=== PATIENT | male | born 1965 | race African-American/Black ===

== ENCOUNTER 2016-08-06 05:40 | Inpatient (IN) ==
--- NOTE | 2016-08-05 14:35 | EKG Report ---
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
[2016-08-05 15:29] LABS: Basophils % 0.4 % (0.0-0.8); Eosinophils # 0.1 10*3/uL (0.0-0.87); Eosinophils % 1.3 % (0.00-10.9); Hematocrit 35.2 VOL% (42.0-52.0); Hemoglobin 11.7 GM/DL (14.0-18.0); Immature Granulocytes % 0.3 %; Immature Granulocytes Absolute 0.03 #; Lymphocytes # 2.2 10*3/uL (1.4-4.0); Mean Corpuscular HGB Conc 33.2 GM/DL (32-36); Mean Corpuscular Hemoglobin 28 PG (27-34); Mean Corpuscular Volume 82.6 FL (87-102); Mean Platelet Volume 8.8 FL (9.6-12.0); Monocytes # 0.5 10*3/uL (0.11-0.8); Monocytes % 5.2 % (1.7-12.7); Neutrophils # 7.1 10*3/uL (1.4-7.4); Neutrophils % 70.8 % (38.7-73.9); Platelet Count 537 T/CUMM (130-400); Red Blood Count 4.26 MC/CUMM (3.8-5.5)
[2016-08-05 15:39] LABS: PT Patient Result 10.7 SECS; Partial Thromboplastin Time 27.7 SECS (0-40)
[2016-08-05 16:12] LABS: Apearance,Urine CLEAR (Clear); Bacteria,Urine Occasional /HPF (Few); Bilirubin,Urine Negative (Negative); Blood, Urine Negative (Negative); Glucose,Urine (UA) Negative (Negative); Ketones,Urine Negative (Negative); Mucus,Urine Many /LPF (Occasional); Nitrite,Urine Negative (Negative); Protein,Urine Negative; RBC,Urine 2 /HPF (0-4); Squamous Epithelial Cell,Urine Occasional /HPF (0-10); Urine Color Yellow (Yellow); Urine Specific Gravity 1.021 (1.001-1.035); WBC,Urine 1 /HPF (0-6)
--- NOTE | 2016-08-05 16:12 | XRay Report ---
XR chest 2V Indication: Preop respiratory evaluation. Chest 2 views: Comparison 08/22/2015. The heart size and mediastinal contour are normal. The lungs and pleural spaces are clear. Bones are unremarkable. Impression: Negative chest. PROCEDURE INTERPRETED AT [facility] DEPARTMENT OF RADIOLOGY Final Report Signed by: Brian Simeon M.D.
[2016-08-06] MEDS ORDERED: VANCOMYCIN INJ 1,000 MG in SODIUM CHLORIDE 0.9% 250 ML IV ONE (06:00)
--- NOTE | 2016-08-06 06:45 | History and Physical Update ---
History and Physical Update - History and Physical H&P was reviewed, the patient examined and there: are no changes in the patients condition since last H&P was completed. - Physical Exam Mental Status: alert and oriented Heart: regular rate and rhythm Lung: clear to auscultation
[2016-08-06] MEDS: LACTATED RINGERS 1,000 ML IV SCH ×4 (07:19→22:08)
[2016-08-06 07:24] LABS: Albumin 3.1 G/DL (3.4-5.0); Bilirubin,Total 0.4 MG/DL (0.2-1.0); Calcium 8.5 MG/DL (8.5-10.1); Osmolality,Calculated 277.5 MOS/KG (273-304); Potassium 3.8 MMOL/L (3.5-5.1); Total Protein 8.1 G/DL (6.4-8.3)
[2016-08-06] MEDS ORDERED: VANCOMYCIN 1,000 MG VIAL ONE (07:29)
[2016-08-06] MEDS ORDERED: SODIUM CHLORIDE 0.9% 100 ML IV ONE ×2 (07:30→10:35)
[2016-08-06] MEDS ORDERED: ceFAZolin 1,000 MG VIAL ONE (07:30)
[2016-08-06] MEDS ORDERED: BACITRACIN OINT 0.9 GM PACK TOP ONE (10:02)
[2016-08-06] MEDS ORDERED: MORPHINE 2 MG/1 ML SYRINGE IV PRN ×2 (10:15)
[2016-08-06] MEDS ORDERED: ONDANSETRON 4 MG/2 ML VIAL IV PRN (10:15)
[2016-08-06] MEDS ORDERED: oxyCODONE IR 5 MG TABLET PO PRN ×2 (10:15)
[2016-08-06] MEDS ORDERED: ZALEPLON 5 MG CAPSULE PO PRN (10:15)
[2016-08-06] MEDS ORDERED: MAGNESIUM HYDROXIDE SUSP 30 ML UDCUP PO PRN (10:15)
[2016-08-06] MEDS ORDERED: diphenhydrAMINE CAP 25 MG CAPSULE PO PRN (10:15)
--- NOTE | 2016-08-06 10:20 | Operative Note ---
Date of procedure: 08/06/16 Procedure: DIAGNOSIS: Left hip primary osteoarthritis PROCEDURE: Left total hip arthroplasty (CPT#52272) SURGEON: Margaux ASST: Hansa ANESTHESIA: Spinal PROCEDURE and FINDINGS: After adequate anesthesia was induced, the patient was placed in lateral decubitus position. Left lower extremities prepped and draped in usual sterile fashion. Posteriolateral approach to the hip was made. Skin, subcutaneous tissue and deep fascia was incised longitudinally. Gluteus danny muscle belly was split in line with its fibers. Piriformis, external rotators and capsule were taken down as a single layer as an inverted L shaped capsulotomy. Hip was dislocated. Templated femoral neck cut was made. Acetabulum was prepared by sequentially reaming to 53 mm. A 54 mm Continuum acetabular shell was press-fit with excellent stability. 1 6.5 millimeter screw was placed with an excellent bite. 32 mm neutral Longevity liner was placed with a dome hole plug. Femur was prepared sequentially with the box osteotome, canal finder and sequential broaches to 15. Components were trialed. A size 15 Versys fiber metal tapered stem was press-fit. A 32+0 mm head was placed. The component was stable posteriorly and anteriorly. Capsule was repaired with #5 Tycron. Deep fascia was closed with 0 Vicryl figure-of- eight suture. Subcutaneous tissue was closed deep with a 2-0 Vicryl runner and superficially with 3-0 interrupted buried sutures. Skin was closed with thien. Bacitracin and a sterile occlusive dressing was applied. Surgeon / Physician: Bradley Damico Jr. Results - Labs CBC & BMP: 08/05/16 15:23 08/06/16 06:40 Discharge Plan - Discharge Medications No Action Naproxen Sodium [Aleve] 220 mg PO DIRECTED - Follow Up or Referral - Forms/Instructions
--- NOTE | 2016-08-06 10:29 | Anesthesia Post-Op ---
Anesthesia Post OP - Post Ansesthetic Evaluation Patient seen in post op: Yes Resp: within normal limits CV: within normal limits Mental: within normal limits Temp: within normal limits Leeq-If-Btuyoqaxv: within normal limits Nausea and Vomiting: within normal limits Pain: within normal limits
[2016-08-06 10:35] LABS: Apearance,Urine CLEAR (Clear); Bilirubin,Urine Negative (Negative); Blood, Urine Small mg/dL (Negative); Glucose,Urine (UA) Negative (Negative); Ketones,Urine Negative (Negative); Mucus,Urine Occasional /LPF (Occasional); Nitrite,Urine Negative (Negative); Protein,Urine Negative; RBC,Urine 2 /HPF (0-4); Squamous Epithelial Cell,Urine Occasional /HPF (0-10); Urine Color Colorless (Yellow); Urine Specific Gravity 1.006 (1.001-1.035); Urine Urobilinogen < 2.0 EU/DL (0.2-1.0); WBC,Urine 2 /HPF (0-6)
[2016-08-06] MEDS ORDERED: MORPHINE 10 MG/10 ML VIAL ONE (10:35)
[2016-08-06] MEDS ORDERED: ACETAMINOPHEN 1,000 MG/100 ML VIAL IV ONE (10:35)
[2016-08-06] MEDS ORDERED: fentaNYL 100 MCG/2 ML VIAL ONE (10:35)
[2016-08-06] MEDS ORDERED: MIDAZOLAM 2 MG/2 ML VIAL ONE (10:35)
[2016-08-06] MEDS ORDERED: TRANEXAMIC ACID 1,000 MG/10 ML VIAL IV ONE (10:36)
--- NOTE | 2016-08-06 10:54 | XRay Report ---
XR hip 1V LT Indication: Hip arthroplasty Comparison: None available Findings: Left hip arthroplasty has been performed. Component positioning and alignment appear within normal limits. No periprosthetic fracture is identified. Impression: Expected postoperative appearance of the left hip. PROCEDURE INTERPRETED AT [facility] DEPARTMENT OF RADIOLOGY Final Report Signed by: Dr. uDncan Camejo
[2016-08-06] MEDS: KETOROLAC 30 MG/1 ML VIAL IV SCH ×2 (12:38→17:10)
--- NOTE | 2016-08-06 15:38 | Orthopedic Progress Note ---
Orthopedics - Subjective Interval history: Comfortable postop. Dressing clean, dry and intact. Left lower extremities neurovascularly intact. Plan: Continue with current postoperative protocol. Exam - Constitutional Vitals: Period Temp Pulse Resp BP Sys/Paige Pulse Ox Last 24 Hr 97 F-97.7 F 50-65 14-20 93-125/54-80 98-100 Results - Labs CBC & BMP: 08/05/16 15:23 08/06/16 06:40
[2016-08-06] MEDS: ACETAMINOPHEN 500 MG TABLET PO SCH ×2 (17:10→22:04)
[2016-08-06] MEDS: DOCUSATE SODIUM 100 MG CAPSULE PO SCH (22:04)
[2016-08-07] MEDS: KETOROLAC 30 MG/1 ML VIAL IV SCH ×2 (00:24→05:42)
[2016-08-07 03:51] LABS: Basophils % 0.3 % (0.0-0.8); Eosinophils # 0.1 10*3/uL (0.0-0.87); Hematocrit 26.6 VOL% (42.0-52.0); Hemoglobin 8.7 GM/DL (14.0-18.0); Immature Granulocytes % 0.3 %; Immature Granulocytes Absolute 0.02 #; Lymphocytes # 1.8 10*3/uL (1.4-4.0); Lymphocytes % 22.6 % (21.2-54.2); Mean Corpuscular HGB Conc 32.7 GM/DL (32-36); Mean Corpuscular Hemoglobin 28 PG (27-34); Mean Corpuscular Volume 84.2 FL (87-102); Mean Platelet Volume 9.7 FL (9.6-12.0); Monocytes # 0.5 10*3/uL (0.11-0.8); Monocytes % 6.3 % (1.7-12.7); Neutrophils # 5.4 10*3/uL (1.4-7.4); Neutrophils % 69.5 % (38.7-73.9); Platelet Count 393 T/CUMM (130-400); Red Blood Count 3.16 MC/CUMM (3.8-5.5); White Blood Count 7.7 T/CUMM (4-12)
[2016-08-07 04:12] LABS: Calcium 7.7 MG/DL (8.5-10.1); Osmolality,Calculated 276.4 MOS/KG (273-304); Potassium 4.3 MMOL/L (3.5-5.1)
[2016-08-07] MEDS: ACETAMINOPHEN 500 MG TABLET PO SCH ×2 (04:38→10:58)
[2016-08-07] MEDS: FONDAPARINUX 2.5 MG/0.5 ML SYRINGE SUBCUT SCH (04:38)
[2016-08-07] MEDS: LACTATED RINGERS 1,000 ML IV SCH (05:43)
--- NOTE | 2016-08-07 07:29 | Orthopedic Progress Note ---
Orthopedics - Subjective Interval history: Mr. Rodney is doing well this morning. He was able to sit up yesterday afternoon with physical therapy. Dressing clean, dry and intact. Left lower extremities neurovascularly unchanged. Plan: Mobilize with physical therapy. Plan swing bed placement. Exam - Constitutional Vitals: Period Temp Pulse Resp BP Sys/[place] Pulse Ox Last 24 Hr 97 F-98.4 F 50-81 14-16 93-144/44-80 97-100 Results - Labs CBC & BMP: 08/07/16 02:58 08/07/16 02:58
[2016-08-07] MEDS: DOCUSATE SODIUM 100 MG CAPSULE PO SCH ×2 (09:27→20:00)
[2016-08-07] MEDS: CELECOXIB 200 MG CAPSULE PO SCH (12:56)
[2016-08-08 02:20] LABS: Basophils % 0.3 % (0.0-0.8); Eosinophils # 0.2 10*3/uL (0.0-0.87); Hematocrit 27.8 VOL% (42.0-52.0); Immature Granulocytes % 0.3 %; Immature Granulocytes Absolute 0.03 #; Lymphocytes # 1.6 10*3/uL (1.4-4.0); Lymphocytes % 17.8 % (21.2-54.2); Mean Corpuscular HGB Conc 32.4 GM/DL (32-36); Mean Corpuscular Hemoglobin 27 PG (27-34); Mean Platelet Volume 9.3 FL (9.6-12.0); Monocytes # 0.4 10*3/uL (0.11-0.8); Monocytes % 4.9 % (1.7-12.7); Neutrophils # 6.7 10*3/uL (1.4-7.4); Neutrophils % 74.7 % (38.7-73.9); Platelet Count 424 T/CUMM (130-400); Red Blood Count 3.35 MC/CUMM (3.8-5.5); Red Cell Distribution Width 14.8 % (9.3-17.3)
[2016-08-08] MEDS: FONDAPARINUX 2.5 MG/0.5 ML SYRINGE SUBCUT SCH (05:43)
--- NOTE | 2016-08-08 07:41 | Orthopedic Progress Note ---
Orthopedics - Subjective Interval history: Comfortable. Patient was able to ambulate in the room yesterday. Dressing clean, dry and intact. Right lower extremities neurovascularly unchanged. Plan: Continue physical therapy. Plan swing bed placement. Exam - Constitutional Vitals: Period Temp Pulse Resp BP Sys/Paige Pulse Ox Last 24 Hr 97.6 F-98.9 F 56-77 18-20 100-137/57-73 95-100 Results - Labs CBC & BMP: 08/08/16 01:56 08/07/16 02:58
[2016-08-08] MEDS: CELECOXIB 200 MG CAPSULE PO SCH (08:43)
[2016-08-08] MEDS: DOCUSATE SODIUM 100 MG CAPSULE PO SCH ×2 (08:44→20:48)
[2016-08-09] MEDS: FONDAPARINUX 2.5 MG/0.5 ML SYRINGE SUBCUT SCH (04:10)
[2016-08-09 05:51] LABS: Basophils % 0.3 % (0.0-0.8); Eosinophils # 0.2 10*3/uL (0.0-0.87); Eosinophils % 2.2 % (0.00-10.9); Hematocrit 29.5 VOL% (42.0-52.0); Hemoglobin 9.7 GM/DL (14.0-18.0); Immature Granulocytes % 0.3 %; Immature Granulocytes Absolute 0.03 #; Lymphocytes # 1.9 10*3/uL (1.4-4.0); Lymphocytes % 19.9 % (21.2-54.2); Mean Corpuscular HGB Conc 32.9 GM/DL (32-36); Mean Corpuscular Hemoglobin 27 PG (27-34); Mean Corpuscular Volume 82.2 FL (87-102); Mean Platelet Volume 9.3 FL (9.6-12.0); Monocytes # 0.6 10*3/uL (0.11-0.8); Monocytes % 6.4 % (1.7-12.7); Neutrophils # 6.9 10*3/uL (1.4-7.4); Neutrophils % 70.9 % (38.7-73.9); Platelet Count 478 T/CUMM (130-400); Red Blood Count 3.59 MC/CUMM (3.8-5.5); Red Cell Distribution Width 14.8 % (9.3-17.3); White Blood Count 9.7 T/CUMM (4-12)
[2016-08-09] MEDS: DOCUSATE SODIUM 100 MG CAPSULE PO SCH ×2 (09:07→21:01)
[2016-08-09] MEDS: CELECOXIB 200 MG CAPSULE PO SCH (09:07)
--- NOTE | 2016-08-09 09:11 | Orthopedic Progress Note ---
Orthopedics - Subjective Interval history: Mr. Rodney was able to walk in the [place] yesterday a short distance. Mr. Rodney has elected to go home. Dressing is clean, dry and intact. Left lower extremities neurovascularly unchanged. Plan: Continue physical therapy. Plan discharge home tomorrow with outpatient physical therapy. Exam - Constitutional Vitals: Period Temp Pulse Resp BP Sys/Paige Pulse Ox Last 24 Hr 97.2 F-99.1 F 72-78 16-18 121-133/72-88 94-99 Results - Labs CBC & BMP: 08/09/16 05:36 08/07/16 02:58
--- NOTE | 2016-08-09 09:30 | Discharge Summary ---
Hospital Course - Hospital Course Hospital Course: Phil Rodney was admitted after undergoing an uncomplicated left total hip arthroplasty. He received perioperative DVT and antimicrobial prophylaxis. Received physical therapy. He was discharged home in stable condition. His dressing is clean, dry and intact. Left lower extremity is neurovascularly unchanged. Discharge instructions were reviewed. Specialty Discharge - Follow Up or Referrals Follow up with: Bradley Damico Jr., MD [Physician] - 08/19/16 8:30 am Discharge Plan - Discharge Data Disposition: Disch To Home/Self Care Condition at Discharge: Stable Discharge Diet: advance to your usual diet Hygiene: may shower Weight Bearing at Discharge: weight bear as tolerated Driving: not until seen by doctor - Discharge Medications No Action No Known Home Medications [No Known Home Medications] - Follow Up or Referral Follow Up: Bradley Damico Jr., MD [Physician] - 08/19/16 8:30 am - Forms/Instructions Additional Discharge Instructions: Posterior hip precautions for 3 months. Daily dry dressing changes. Arrange for walker and bedside commode for home use. Wear BENJI hose for 1 month. Follow-up appointment in 10 days. Prescription for [place] 7.5 with 30 tablets was written. Take aspirin 325 mg by mouth daily for 21 days. Set up outpatient physical therapy. Exam - Constitutional Vitals: Period Temp Pulse Resp BP Sys/Paige Pulse Ox Last 24 Hr 97.2 F-99.1 F 72-78 16-18 121-133/72-88 94-99 Discharge Results Labs on day of discharge: Labs from last 24 hours 08/09/16 05:36 WBC 9.7 RBC 3.59 L Hgb 9.7 L Hct 29.5 L MCV 82.2 L MCH 27 MCHC 32.9 RDW 14.8 Plt Count 478 H MPV 9.3 L Neut % (Auto) 70.9 Lymph % (Auto) 19.9 L [place] % (Auto) 6.4 Eos % (Auto) 2.2 Baso % (Auto) 0.3 Neut # (Auto) 6.9 Lymph # (Auto) 1.9 [place] # (Auto) 0.6 Eos # (Auto) 0.2 Baso # (Auto) 0.0 Immature Gran % 0.3 Nucleated RBC % 0.0 Immature Gran # 0.03 Nucleated RBCs # 0.00 DS: Provider Date of admission: 08/06/16 05:40 Primary care physician: Yevgeniy Chase MD Attending physician on admission: Bradley Damico Jr., Consults: 08/06/16 10:15 Consult to Case Mgmt/Social Srvs [CONS] Routine Reason for Case Mgmt/Social Srvs: Rehab Home Health Equipment Consult Comment: Bedside Commode, CPM, Walker Consult to Occupational Therapy [CONS] Routine Reason for Occupational Therapy: Evaluate and Treat Consult Comment: ADL's Consult to Physical Therapy [CONS] Routine Reason for Physical Therapy: Evaluate and Treat Gait Training Start Therapy: Today Consult Comment: wbat, hip precautions 08/06/16 11:52 Consult to Pastoral Services [CONS] Routine Comment: Pastoral Screen: Request Coating Mixer Visit Pastoral Screen Source of Request: Patient 08/09/16 09:25 Consult to Outpatient Therapy [CONS] Routine Reason for Outpatient Therapy: Physical Therapy Consult Comment: s/p l erick, wbat, hip precautions Discharging clinician: Bradley Damico Jr., Expected date of discharge: 08/10/16
--- NOTE | 2016-08-09 12:24 | Pathology Report from [facility] ---
[facility] [place] : [id number] PATIENT NAME : Nataliia Hooper ORDERING DR : TRESA EDGE MD CLINICAL HX: LT hip osteoarthritis POST-OP DX: Same SPECIMEN INFO: LT hip bone & tissue GROSS DESCRIPTION: The specimen is received in formalin labeled with the patients name and consists of a 4.9 x 5.2 cm x up to 5.8 cm femoral head. The articular surface is pink-puga and degenerative with a peripheral osteophyte formations present. The cut surface is smooth and hyperemic with mild softening appreciated. Also received in the specimen are fragments of femoral neck, adipose tissue and shavings of bone collectively measuring 6.5 x 5.5 cm. Bagman/Woman tissue submitted in one cassette following decalcification. DIAGNOSIS FOR NATALIIA HOOPER: LEFT HIP BONE & TISSUE, REPLACEMENT: Osteoarthritis. COLLECTED DATE: 08/06/2016 [facility] REPORT DATE: 08/09/2016 ELECTRONICALLY SIGNED BY: Yany Ortiz M.D. 08/09/2016 - 10:28:02 JEROMY
[2016-08-10] MEDS: FONDAPARINUX 2.5 MG/0.5 ML SYRINGE SUBCUT SCH (04:01)
[2016-08-10 07:24] LABS: Calcium 8.8 MG/DL (8.5-10.1); Osmolality,Calculated 277.4 MOS/KG (273-304); Potassium 3.9 MMOL/L (3.5-5.1)
[2016-08-10] MEDS: CELECOXIB 200 MG CAPSULE PO SCH (09:00)
[2016-08-10] MEDS: DOCUSATE SODIUM 100 MG CAPSULE PO SCH (09:00)
[2016-08-10 11:49] VITALS: BP 154/95
== END 2016-08-10 12:55 | disposition home or self-care (01) | DRG 301 ==
LOC: N.SDSINP 05:40 → N.3E 11:27
PROVIDERS: ADMIT Orthopaedic Surgery; ATTEND Orthopaedic Surgery

== ENCOUNTER 2016-11-08 06:04 | Inpatient (IN) ==
[2016-11-05 10:24] LABS: Basophils % 0.6 % (0.0-0.8); Eosinophils # 0.1 10*3/uL (0.0-0.87); Hematocrit 35.1 VOL% (42.0-52.0); Hemoglobin 11.6 GM/DL (14.0-18.0); Immature Granulocytes % 0.1 %; Immature Granulocytes Absolute 0.01 #; Lymphocytes # 2.2 10*3/uL (1.4-4.0); Lymphocytes % 32.4 % (21.2-54.2); Mean Corpuscular Hemoglobin 27 PG (27-34); Mean Corpuscular Volume 81.6 FL (87-102); Mean Platelet Volume 9.3 FL (9.6-12.0); Monocytes # 0.3 10*3/uL (0.11-0.8); Monocytes % 4.8 % (1.7-12.7); Neutrophils # 4.2 10*3/uL (1.4-7.4); Neutrophils % 61.1 % (38.7-73.9); Platelet Count 487 T/CUMM (130-400); Red Cell Distribution Width 15.6 % (9.3-17.3); White Blood Count 6.9 T/CUMM (4-12)
--- NOTE | 2016-11-05 10:32 | XRay Report ---
XR chest 2V Indication: Respiratory preoperative evaluation Comparison: 05 August 2016 Findings: The heart and mediastinum are normal in size and configuration. The pulmonary vascularity is normal in caliber. No lung infiltrates, effusions, pneumothorax or other abnormality is demonstrated. Impression: Normal chest x-ray PROCEDURE INTERPRETED AT [facility] DEPARTMENT OF RADIOLOGY Final Report Signed by: Dr. Duncan Camejo
--- NOTE | 2016-11-05 10:34 | EKG Report ---
Stationary ECG Study [facility] Test Date: 11/05/2016 10:35:49 AM Pat Name: ALANIS HOOPER Department: Room: Gender: M Medical Physiologist: MARCIANO : 1965 Requested by: Bradley Polo Order Number: [id number] Reading MD: URSULA TEJADA Intervals [place] Rate: 68 P: 61 IA: 154 QRS: 66 QRSD: 97 T: -4 QT: 364 QTc: 381 Interpretive Statements SINUS RHYTHM AT 68 BPM MINIMAL VOLTAGE CRITERIA FOR LVH, CONSIDER NORMAL VARIANT SUGGESTS OLD INFERIOR MYOCARDIAL INFARCTION, Electronically Signed On 11-05-16 14:13:29 CDT by URSULA TEJADA [id number]
[2016-11-05 10:36] LABS: Apearance,Urine CLEAR (Clear); Bilirubin,Urine Negative (Negative); Blood, Urine Negative (Negative); Glucose,Urine (UA) Negative (Negative); Hyaline Casts,Urine 1 /LPF (0-3); Ketones,Urine Negative (Negative); Mucus,Urine Few /LPF (Occasional); Nitrite,Urine Negative (Negative); Protein,Urine Negative; RBC,Urine 1 /HPF (0-4); Squamous Epithelial Cell,Urine Occasional /HPF (0-10); Urine Color Yellow (Yellow); Urine Specific Gravity 1.023 (1.001-1.035); Urine Urobilinogen < 2.0 EU/DL (0.2-1.0); WBC,Urine 1 /HPF (0-6)
[2016-11-05 10:40] LABS: PT Patient Result 10.6 SECS; Partial Thromboplastin Time 27.6 SECS (0-40)
[2016-11-05 10:52] LABS: Albumin 3.4 G/DL (3.4-5.0); Bilirubin,Total 0.5 MG/DL (0.2-1.0); Calcium 8.9 MG/DL (8.5-10.1); Osmolality,Calculated 280.5 MOS/KG (273-304); Potassium 3.3 MMOL/L (3.5-5.1); Total Protein 8.8 G/DL (6.4-8.3)
[~2016-11-08 06:04] MED LIST: VANCOMYCIN INJ 1,000 MG in SODIUM CHLORIDE 0.9% 250 ML IV ONE
[2016-11-08] MEDS ORDERED: PANTOPRAZOLE 40 MG TABLET PO ONE ×2 (06:42→08:08)
[2016-11-08] MEDS ORDERED: DIAZEPAM 5 MG TABLET PO ONE (06:42)
--- NOTE | 2016-11-08 06:48 | History and Physical Update ---
History and Physical Update - History and Physical H&P was reviewed, the patient examined and there: are no changes in the patients condition since last H&P was completed.
[2016-11-08] MEDS ORDERED: VANCOMYCIN 1,000 MG VIAL ONE (06:56)
[2016-11-08] MEDS ORDERED: ceFAZolin 1,000 MG VIAL ONE (06:56)
[2016-11-08] MEDS ORDERED: SODIUM CHLORIDE 0.9% 50 ML IV ONE (06:56)
[2016-11-08] MEDS: LACTATED RINGERS 1,000 ML IV SCH ×4 (07:50→18:04)
[2016-11-08] MEDS ORDERED: DIAZEPAM 5 MG TABLET ONE (08:08)
[2016-11-08] MEDS ORDERED: TRANEXAMIC ACID 1,000 MG/10 ML VIAL IV ONE (09:28)
[2016-11-08] MEDS ORDERED: BACITRACIN OINT 0.9 GM PACK TOP ONE (10:14)
--- NOTE | 2016-11-08 10:37 | Operative Note ---
Date of procedure: 11/08/16 Procedure: DIAGNOSIS: Right hip primary osteoarthritis PROCEDURE: Right total hip arthroplasty (CPT#54303) SURGEON: Margaux ANESTHESIA: Spinal PROCEDURE and FINDINGS: After adequate anesthesia was induced, the patient was placed in lateral decubitus position. Left lower extremities prepped and draped in usual sterile fashion. Posteriolateral approach to the hip was made. Skin, subcutaneous tissue and deep fascia was incised longitudinally. Gluteus danny muscle belly was split in line with its fibers. Piriformis, external rotators and capsule were taken down as a single layer as an inverted L shaped capsulotomy. Hip was dislocated. Templated femoral neck cut was made. Acetabulum was prepared by sequentially reaming to 53 mm. A 54 mm Continuum acetabular shell was press-fit with excellent stability. 1 6.5 millimeter screw was placed with an excellent bite. 32 mm elevated rim longevity liner was placed with a dome hole plug. Femur was prepared sequentially with the box osteotome, canal finder and sequential broaches to 14. Components were trialed. A size 14 Versys fiber metal tapered stem was press-fit. A 32+0 mm head was placed. The component was stable posteriorly and anteriorly. Capsule was repaired with #5 Tycron. Deep fascia was closed with 0 Vicryl [id number]-av-pjstu suture. Subcutaneous tissue was closed deep with a 2-0 Vicryl runner and superficially with 3-0 interrupted buried sutures. Skin was closed with thien. Bacitracin and a sterile occlusive dressing was applied. Surgeon / Physician: Bradley Damico Jr. Results - Labs CBC & BMP: 11/05/16 10:14 11/05/16 10:14 Discharge Plan - Discharge Medications No Action Aspirin 325 mg PO DAILY - Follow Up or Referral - Forms/Instructions
[2016-11-08] MEDS ORDERED: diphenhydrAMINE CAP 25 MG CAPSULE PO PRN (10:38)
[2016-11-08] MEDS ORDERED: MORPHINE 2 MG/1 ML SYRINGE IV PRN (10:38)
[2016-11-08] MEDS ORDERED: ZALEPLON 5 MG CAPSULE PO PRN (10:38)
[2016-11-08] MEDS ORDERED: ONDANSETRON 4 MG/2 ML VIAL IV PRN (10:38)
[2016-11-08] MEDS ORDERED: oxyCODONE IR 5 MG TABLET PO PRN (10:38)
--- NOTE | 2016-11-08 10:53 | Anesthesia Post-Op ---
Anesthesia Post OP - Post Ansesthetic Evaluation Patient seen in post op: Yes Resp: within normal limits CV: within normal limits Mental: within normal limits Temp: within normal limits Ythp-Hg-Izibuqvez: within normal limits Nausea and Vomiting: within normal limits Pain: within normal limits
[2016-11-08 10:58] LABS: Apearance,Urine CLEAR (Clear); Bilirubin,Urine Negative (Negative); Blood, Urine Negative (Negative); Glucose,Urine (UA) Negative (Negative); Ketones,Urine Negative (Negative); Mucus,Urine Occasional /LPF (Occasional); Nitrite,Urine Negative (Negative); Protein,Urine Negative; RBC,Urine 1 /HPF (0-4); Squamous Epithelial Cell,Urine Occasional /HPF (0-10); Urine Color Straw (Yellow); Urine Specific Gravity 1.013 (1.001-1.035); Urine Urobilinogen < 2.0 EU/DL (0.2-1.0)
[2016-11-08] MEDS ORDERED: PROPOFOL 200 MG/20 ML VIAL IV ONE (11:00)
[2016-11-08] MEDS ORDERED: ONDANSETRON 4 MG/2 ML VIAL ONE (11:01)
[2016-11-08] MEDS ORDERED: KETOROLAC 30 MG/1 ML VIAL ONE (11:01)
[2016-11-08] MEDS ORDERED: fentaNYL 100 MCG/2 ML VIAL ONE (11:01)
[2016-11-08] MEDS ORDERED: MIDAZOLAM 2 MG/2 ML VIAL ONE (11:01)
[2016-11-08] MEDS ORDERED: ePHEDrine 50 MG/ML AMP ONE (11:01)
[2016-11-08] MEDS ORDERED: SODIUM CHLORIDE 0.9% 100 ML IV ONE (11:02)
[2016-11-08] MEDS ORDERED: LACTATED RINGERS 1,000 ML IV ONE (11:02)
[2016-11-08] MEDS ORDERED: ACETAMINOPHEN 1,000 MG/100 ML VIAL IV ONE (11:02)
[2016-11-08] MEDS ORDERED: GLYCOPYRROLATE 0.4 MG/2 ML VIAL ONE (11:02)
[2016-11-08] MEDS: KETOROLAC 30 MG/1 ML VIAL IV SCH ×3 (11:51→22:04)
--- NOTE | 2016-11-08 16:36 | Orthopedic Progress Note ---
Orthopedics - Subjective Interval history: Complaining of pain. Sitting in chair. Nv ok. dressing dry. Morphine now. Continue per orders. Exam - Constitutional Vitals: Period Temp Pulse Resp BP Sys/Paige Pulse Ox Last 24 Hr 97.0 F-97.7 F 50-82 16-20 90-126/69-83 98-100 Results - Labs CBC & BMP: 11/05/16 10:14 11/05/16 10:14
--- NOTE | 2016-11-08 16:55 | XRay Report ---
Exam: XR hip 1V RT Exam date 11/08/2016 10: 56 AM Indication: Postop Comparison: May 31, 2016 Findings: Patient is status post right hip arthroplasty. Alignment is anatomic. No evidence of hardware failure. Postoperative changes within the adjacent soft tissues. Impression: Expected postoperative appearance of right hip arthroplasty placement PROCEDURE INTERPRETED AT [facility] DEPARTMENT OF RADIOLOGY Final Report Signed by: Ethan Toro
[2016-11-08] MEDS: MORPHINE 2 MG/1 ML SYRINGE IV PRN (18:10)
[2016-11-08] MEDS ORDERED: VANCOMYCIN INJ 1,000 MG in SODIUM CHLORIDE 0.9% 250 ML IV ONE (18:38)
[2016-11-08] MEDS: DOCUSATE SODIUM 100 MG CAPSULE PO SCH (20:20)
[2016-11-08] MEDS: oxyCODONE IR 5 MG TABLET PO PRN (20:20)
[2016-11-09] MEDS: LACTATED RINGERS 1,000 ML IV SCH (05:04)
[2016-11-09] MEDS: FONDAPARINUX 2.5 MG/0.5 ML SYRINGE SUBCUT SCH (05:57)
[2016-11-09] MEDS: KETOROLAC 30 MG/1 ML VIAL IV SCH (05:58)
[2016-11-09 06:40] LABS: Basophils % 0.2 % (0.0-0.8); Eosinophils # 0.1 10*3/uL (0.0-0.87); Eosinophils % 0.6 % (0.00-10.9); Hematocrit 28.1 VOL% (42.0-52.0); Immature Granulocytes % 0.2 %; Immature Granulocytes Absolute 0.02 #; Lymphocytes % 24.1 % (21.2-54.2); Mean Corpuscular HGB Conc 33.1 GM/DL (32-36); Mean Corpuscular Hemoglobin 27 PG (27-34); Mean Corpuscular Volume 81.2 FL (87-102); Mean Platelet Volume 9.8 FL (9.6-12.0); Monocytes # 0.7 10*3/uL (0.11-0.8); Neutrophils # 5.5 10*3/uL (1.4-7.4); Neutrophils % 66.9 % (38.7-73.9); Platelet Count 431 T/CUMM (130-400); Red Blood Count 3.46 MC/CUMM (3.8-5.5); Red Cell Distribution Width 15.4 % (9.3-17.3); White Blood Count 8.2 T/CUMM (4-12)
[2016-11-09 06:52] LABS: Hemoglobin 9.3 GM/DL (14.0-18.0)
[2016-11-09 06:53] LABS: Calcium 8.3 MG/DL (8.5-10.1); Osmolality,Calculated 273.7 MOS/KG (273-304); Potassium 3.9 MMOL/L (3.5-5.1)
--- NOTE | 2016-11-09 08:15 | Orthopedic Progress Note ---
Orthopedics - Subjective Interval history: Mr. Rodney is complaining of pain. He was able to work with physical therapy yesterday. Dressing clean, dry and intact. Right lower extremity neurovascular change. Plan: Continue with physical therapy. Anticipate discharge home tomorrow or . Exam - Constitutional Vitals: Period Temp Pulse Resp BP Sys/Paige Pulse Ox Last 24 Hr 97.0 F-98.1 F 50-82 16-20 90-129/63-79 94-100 Results - Labs CBC & BMP: 11/09/16 05:56 11/09/16 05:56 Specialty Discharge - Follow Up or Referrals Follow up with: Bradley Damico Jr., MD [Physician] -
[2016-11-09] MEDS: DOCUSATE SODIUM 100 MG CAPSULE PO SCH ×2 (08:45→20:32)
[2016-11-09] MEDS: MORPHINE 2 MG/1 ML SYRINGE IV PRN (09:33)
--- NOTE | 2016-11-09 12:21 | Pathology Report from [facility] ---
[facility] [place] # : [id number] PATIENT NAME : Nataliia Hooper ORDERING DR : TRESA EDGE MD CLINICAL HX: RT hip osteoarthritis POST-OP DX: Same SPECIMEN INFO: RT hip bone & tissue GROSS DESCRIPTION: The specimen is received in formalin labeled with the patients name and consists of a 4.6 x 4.9 cm x up to 5.7 cm femoral head. The articular surfaces are focally degenerative with osteophyte formation and peripheral cartilaginous lipping. The cut surface is smooth, red-puga with marked softening appreciated. Received separately in the container are multiple hyperemic bone shavings collectively measuring 7.5 x 6.0 cm. Territory Account Representative tissue submitted in one cassette following decalcification. DIAGNOSIS FOR NATALIIA HOOPER: RIGHT HIP, TOTAL REPLACEMENT: Fragments of bone, trilineage hematopoietic bone marrow, and cartilaginous tissue with reactive/degenerative changes, consistent with osteoarthritis. COLLECTED DATE: 11/08/2016 [facility] [place] DATE: 11/09/2016 ELECTRONICALLY SIGNED BY: Vanessa Fields M.D. 11/09/2016 - 11:13:33 [facility]
[2016-11-09] MEDS: oxyCODONE IR 5 MG TABLET PO PRN (13:48)
[2016-11-09] MEDS: CELECOXIB 200 MG CAPSULE PO SCH (15:56)
[2016-11-10 05:17] LABS: Basophils % 0.2 % (0.0-0.8); Eosinophils # 0.1 10*3/uL (0.0-0.87); Eosinophils % 1.1 % (0.00-10.9); Hematocrit 28.2 VOL% (42.0-52.0); Hemoglobin 9.2 GM/DL (14.0-18.0); Immature Granulocytes % 0.5 %; Immature Granulocytes Absolute 0.05 #; Lymphocytes # 1.7 10*3/uL (1.4-4.0); Lymphocytes % 16.8 % (21.2-54.2); Mean Corpuscular HGB Conc 32.6 GM/DL (32-36); Mean Corpuscular Hemoglobin 26 PG (27-34); Mean Corpuscular Volume 80.6 FL (87-102); Mean Platelet Volume 9.2 FL (9.6-12.0); Monocytes # 0.9 10*3/uL (0.11-0.8); Monocytes % 8.9 % (1.7-12.7); Neutrophils # 7.3 10*3/uL (1.4-7.4); Neutrophils % 72.5 % (38.7-73.9); Platelet Count 405 T/CUMM (130-400); Red Cell Distribution Width 15.4 % (9.3-17.3)
[2016-11-10] MEDS: FONDAPARINUX 2.5 MG/0.5 ML SYRINGE SUBCUT SCH (05:26)
--- NOTE | 2016-11-10 07:15 | Orthopedic Progress Note ---
Orthopedics - Subjective Interval history: Mr. Rodney feels better today. He is still complaining of pain to his hip. His dressing is clean, dry and intact. His right lower extremity is neurovascularly unchanged. Hemoglobin is stable. Plan: Mobilize with physical therapy. Plan discharge home tomorrow. Exam - Constitutional Vitals: Period Temp Pulse Resp BP Sys/Paige Pulse Ox Last 24 Hr 97.3 F-98.5 F 66-94 16-20 110-141/65-83 94-97 Results - Labs CBC & BMP: 11/10/16 05:01 11/09/16 05:56 Specialty Discharge - Follow Up or Referrals Follow up with: Bradley Damico Jr., MD [Physician] -
[2016-11-10] MEDS: CELECOXIB 200 MG CAPSULE PO SCH (08:32)
[2016-11-10] MEDS: DOCUSATE SODIUM 100 MG CAPSULE PO SCH ×3 (08:33→20:44)
[2016-11-10] MEDS: MAGNESIUM HYDROXIDE SUSP 30 ML UDCUP PO PRN (20:44)
[2016-11-11] MEDS: FONDAPARINUX 2.5 MG/0.5 ML SYRINGE SUBCUT SCH (04:30)
[2016-11-11] MEDS: MAGNESIUM HYDROXIDE SUSP 30 ML UDCUP PO PRN (04:33)
[2016-11-11 05:21] LABS: Basophils % 0.3 % (0.0-0.8); Eosinophils # 0.2 10*3/uL (0.0-0.87); Eosinophils % 1.7 % (0.00-10.9); Hematocrit 27.2 VOL% (42.0-52.0); Hemoglobin 8.8 GM/DL (14.0-18.0); Immature Granulocytes % 0.1 %; Immature Granulocytes Absolute 0.01 #; Lymphocytes # 2.2 10*3/uL (1.4-4.0); Lymphocytes % 25.1 % (21.2-54.2); Mean Corpuscular HGB Conc 32.4 GM/DL (32-36); Mean Corpuscular Hemoglobin 27 PG (27-34); Mean Corpuscular Volume 81.9 FL (87-102); Mean Platelet Volume 9.6 FL (9.6-12.0); Monocytes # 0.7 10*3/uL (0.11-0.8); Monocytes % 7.7 % (1.7-12.7); Neutrophils # 5.7 10*3/uL (1.4-7.4); Neutrophils % 65.1 % (38.7-73.9); Platelet Count 434 T/CUMM (130-400); Red Blood Count 3.32 MC/CUMM (3.8-5.5); Red Cell Distribution Width 15.5 % (9.3-17.3); White Blood Count 8.8 T/CUMM (4-12)
--- NOTE | 2016-11-11 06:25 | Discharge Summary ---
Hospital Course - Hospital Course Hospital Course: Mr. Rodney was admitted after undergoing an uncomplicated right total hip arthroplasty. He received perioperative DVT and antimicrobial prophylaxis. The patient received physical therapy. He was discharged home postoperative day #3 in stable condition. This morning, Mr. Rodney was examined. His wound is clean with scant serosanguineous drainage. Right lower extremity is neurovascularly intact. Specialty Discharge - Follow Up or Referrals Follow up with: Bradley Damico Jr., MD [Physician] - 11/24/16 9:35 am Discharge Plan - Discharge Data Disposition: Disch To Home/Self Care Condition at Discharge: Stable Discharge Diet: advance to your usual diet Hygiene: may shower Weight Bearing at Discharge: weight bear as tolerated Driving: not until seen by doctor - Discharge Medications No Action Aspirin 325 mg PO DAILY - Follow Up or Referral Follow Up: Bradley Damico Jr., MD [Physician] - 11/24/16 9:35 am - Forms/Instructions Instructions: Total Hip Replacement (DC) Additional Discharge Instructions: Posterior hip precautions for 3 months. Daily dry dressing changes. Wear BENJI hose for 1 month. Follow-up appointment in 10-14 days. Prescription for [place] 7.5 with 30 tablets was written. Take aspirin 325 mg by mouth daily for 21 days. Exam - Constitutional Vitals: Period Temp Pulse Resp BP Sys/Paige Pulse Ox Last 24 Hr 97.3 F-97.9 F 66-80 14-20 109-121/65-72 94-98 Discharge Results Labs on day of discharge: Labs from last 24 hours 11/11/16 04:42 WBC 8.8 RBC 3.32 L Hgb 8.8 L Hct 27.2 L MCV 81.9 L MCH 27 MCHC 32.4 RDW 15.5 Plt Count 434 H MPV 9.6 Neut % (Auto) 65.1 Lymph % (Auto) 25.1 [place] % (Auto) 7.7 Eos % (Auto) 1.7 Baso % (Auto) 0.3 Neut # (Auto) 5.7 Lymph # (Auto) 2.2 [place] # (Auto) 0.7 Eos # (Auto) 0.2 Baso # (Auto) 0.0 Immature Gran % 0.1 Nucleated RBC % 0.0 Immature Gran # 0.01 Nucleated RBCs # 0.00 Immature Plt Fraction 0.0 DS: Provider Date of admission: 11/08/16 06:04 Primary care physician: Yevgeniy Chase MD Attending physician on admission: Bradley Damico Jr., Consults: 11/08/16 10:38 Consult to Case Mgmt/Social Srvs [CONS] Routine Reason for Case Mgmt/Social Srvs: Rehab Home Health Equipment Consult Comment: Bedside Commode, CPM, Walker Consult to Occupational Therapy [CONS] Routine Reason for Occupational Therapy: Evaluate and Treat Consult Comment: ADL's Consult to Physical Therapy [CONS] Routine Reason for Physical Therapy: Evaluate and Treat Gait Training Start Therapy: Today Consult Comment: wbat, hip precautions 11/09/16 08:43 Consult to Outpatient Therapy [CONS] Routine Reason for Outpatient Therapy: Physical Therapy Consult Comment: Set up OP PT w/patient before D/C'd from hospital. Hip Replacement Discharging clinician: Bradley Damico Jr., Expected date of discharge: 11/11/16
[2016-11-11] MEDS: DOCUSATE SODIUM 100 MG CAPSULE PO SCH (09:02)
[2016-11-11] MEDS: CELECOXIB 200 MG CAPSULE PO SCH (09:02)
[2016-11-11 12:00] VITALS: BP 120/71
== END 2016-11-11 13:09 | disposition home or self-care (01) | DRG 301 ==
LOC: N.SDSINP 06:04 → N.3E 09:21
PROVIDERS: ADMIT Orthopaedic Surgery; ATTEND Orthopaedic Surgery